=== PATIENT | male | born 1985 | race Two or more races ===

== ENCOUNTER 2023-04-04 01:55 | Emergency (ER) | payer MEDICAID ==
[~2023-04-04] VITALS: Ht 175.3 cm; Wt 81.6 kg
[2023-04-04 04:00] VITALS: BP 140/72
== END 2023-04-04 04:26 | disposition home or self-care (01) ==
LOC: EDBD 01:55 → ER 01:55
DX: F10.129 Alcohol abuse with intoxication, unspecified (principal); Y90.9 Presence of alcohol in blood, level not specified
CPT/HCPCS: 70450